=== PATIENT | female | born 1965 | race Caucasian/White ===

== ENCOUNTER → 2016-08-21 | Outpatient (CLI) | payer OTHER ==
[~2016-08-21] MED LIST: ALPRAZOLAM PO; AMBIEN10 MG PO; CARDIZEM CD PO; CRESTOR PO; CYMBALTA30 MG PO; DICLOFENAC SODI25 MG PO; ESTRACE2 M1 PO; ESTRADIOL0.5 MG PO; FIBER SELECT G1 EACH PO; HCTZ PO; IMITREX50 MG; LISINOPRIL10 MG PO; LISINOPRIL20 MG PO; LOPRESSOR PO; MOBIC15 MG PO; NEURONTIN300 MG PO; PERCOCET 7.5-31 EACH PO; PERCOCET 7.5/321 TAB PO; PRAVASTATIN SOD20 MG PO; PRAVASTATIN SOD40 MG PO; PREMARIN PO; PREVACID PO; PROTONIX PO; PROTONIX20 MG PO; RIZATRIPTAN10 MG PO; SENOKOT S1 TA1 PO; SLEEPING TABLET25 M1 PO; TORADOL10 MG PO; TRAMADOL HCL50 M2 PO; ULTRAM PO; ZESTRIL10 M2 PO
--- NOTE | ~2016-08-21 | MY11 ---
[facility] A Service of [facility] RADIOLOGY TEXT RESULTS PATIENT: MJ QUILES LOCATION: [facility] : 69 UNIT #: [id number] AGE: [address]: Chris Bowles MD SEX: F ORDER DR: [id number] [facility] [address] [place], [place] [address] [id number] O MR#: [id number] Acc #: [id number] NAME: MJ QUILES : 1965 SEX: F STUDY DATE/TIME: 08/21/2016 15:30 UNIT: [facility] ROOM: STUDY DESCRIPTION: MY Mammogram Screening Dig Art Attending Physician: Chris Bowles M.D. Ordering Physician: Chris Bowles M.D. Primary Care Physician: David Perdue M.D. MEDICAL IMAGING REPORT This report is preliminary unless electronic signature is present EXAM Bilateral digital screening mammogram with CAD 08/21/2016 INDICATIONS 51-year-old female for routine screening. No reported problems. No personal history of breast cancer. Family history positive in a paternal grandmother. No surgeries. TECHNIQUE CC and MLO views were obtained and reviewed with FDA approved CAD device. COMPARISON 08/02/2015 03/30/2014 07/24/2012 FINDINGS Breast parenchyma is composed of scattered fibroglandular densities and unchanged. There is no new dominant nodule, mass or suspicious cluster of microcalcifications. IMPRESSION Negative screening mammogram. One year followup recommended. Patients over the age of 40 are entered into a reminder system with target due date for the next mammogram. A result letter will also be sent to the patient. BIRADS: 1 Negative. Dictated by... Saurav Hodge M.D. THIS IS AN ELECTRONICALLY VERIFIED REPORT Saurav Hodge M.D. at 08/22/2016 10:16 AM JOÃO/valdemar [facility] A Service of [facility] RADIOLOGY TEXT RESULTS PATIENT: MJ QUILES LOCATION: [facility] #: [id number] : [birth year] UNIT #: [id number] AGE: [address]: Chris Bowles MD SEX: F ORDER DR: TD: 08/22/2016 06:49 JOB #: [id number] MEDICAL IMAGING REPORT COPY
== END | disposition home or self-care (01) ==
LOC: CWCC 15:11
DX: Z12.31 Encounter for screening mammogram for malignant neoplasm of breast (principal); Z80.3 Family history of malignant neoplasm of breast
CPT/HCPCS: G0202

== ENCOUNTER 2017-02-09 10:07 | Emergency (ER) | payer OTHER ==
[~2017-02-09] VITALS: Ht 160 cm; Wt 82.5 kg
== END 2017-02-09 10:57 | disposition home or self-care (01) ==
LOC: CED 10:07
DX: B02.9 Zoster without complications (principal); I10 Essential (primary) hypertension; Z90.710 Acquired absence of both cervix and uterus; Z98.51 Tubal ligation status
CPT/HCPCS: 99282